=== PATIENT | male | born 1970 | race Caucasian/White ===

== ENCOUNTER 2025-04-04 14:21 | Emergency (ER) | payer OTHER ==
[~2025-04-04] VITALS: Ht 193 cm; Wt 104.3 kg
[2025-04-04 14:30] VITALS: BP 123/82
[2025-04-04] MEDS ORDERED: PRED20 PO (14:38)
== END 2025-04-04 16:11 | disposition home or self-care (01) ==
LOC: ER 14:21
DX: L23.7 Allergic contact dermatitis due to plants, except food (principal); F17.210 Nicotine dependence, cigarettes, uncomplicated; Z79.52 Long term (current) use of systemic steroids
CPT/HCPCS: 99282; J7512